=== PATIENT | male | born 1990 | race Caucasian/White ===

== ENCOUNTER → 2021-04-25 | Outpatient (CLI) | payer OTHER ==
[~2021-04-25] MED LIST: BROMFED DM COU473 ML PO; CLEOCIN HCL300 MG PO; IBU800 MG PO; IBUPROFEN600 MG PO; IBUPROFEN800 MG PO; KEFLEX500 MG PO; NAPROSYN500 MG PO; Viscous lidocaine 2% PO
== END ==
LOC: LAB 04:27
DX: Z02.83 Encounter for blood-alcohol and blood-drug test (principal)
CPT/HCPCS: 36415

== ENCOUNTER 2022-04-06 07:49 | Emergency (ER) | payer OTHER ==
[2022-04-06] MEDS ORDERED: ULTRAM50 MG PO (08:17)
== END 2022-04-06 08:40 | disposition home or self-care (01) ==
LOC: ER1 07:49
DX: M54.50 Low back pain, unspecified (principal); F17.200 Nicotine dependence, unspecified, uncomplicated
CPT/HCPCS: 99283